=== PATIENT | female | born 2000 | race Caucasian/White ===

== ENCOUNTER → 2020-07-17 14:00 | Outpatient (CLI) | payer OTHER, SELFPAY ==
--- NOTE | ~2020-07-17 | MR_ITS ---
EXAMINATION: MR shoulder LT wo con DATE: 07/17/2020 14:38 INDICATION: Left shoulder pain TECHNIQUE: Magnetic resonance imaging (MRI) of the left shoulder was performed without intravenous co ntrast. Sequences included axial PD-weighted FS FSE, coronal oblique PD-weighted FS FSE, coronal obli que T2-weighted FS FSE, sagittal PD-weighted FS FSE, and sagittal T1-weighted SE. COMPARISON: None. FINDINGS: Coracoacromial arch: The acromion undersurface is curved in morphology (type II). The coracoacromial ligament is normal. A cromioclavicular joint is normal. Rotator cuff: The supraspinatus, infraspinatus and teres minor tendons are normal. The subscapularis tendon is norm al. Normal rotator cuff muscle bulk and signal. Biceps tendon, glenoid labrum and glenohumeral cartilage: Long head of the biceps tendon is normal. Glenoid labrum is normal. Glenohumeral cartilage is normal. Fluid: Physiologic amount of fluid in the glenohumeral joint and biceps tendon sheath. No loose osteochondra l bodies. Small amount of fluid in the subacromial/subdeltoid bursa consistent with mild bursitis. Bones: Normal marrow signal with no edema, fracture or abnormal marrow replacing process. IMPRESSION: 1. Small amount of bursal fluid consistent with mild subacromial/subdeltoid bursitis. Otherwise unrem arkable left shoulder MRI. Reviewed, dictated and finalized at location A. [employer] IMPRESSION: 1. Small amount of bursal fluid consistent with mild subacromial/subdeltoid bur sitis. Otherwise unremarkable left shoulder MRI.
== END ==
DX: M25.512 Pain in left shoulder (principal)
CPT/HCPCS: 73221

== ENCOUNTER → 2020-07-24 12:05 | Outpatient (CLI) | payer OTHER, SELFPAY ==
--- NOTE | ~2020-07-24 | XR_ITS ---
XR cervical spine min 6V DATE: 07/24/2020 12:37 INDICATION: Neck pain. Thoracic outlet syndrome. TECHNIQUE: Flexion and extension and neutral lateral views. Bilateral oblique views. Open-mouth, odon toid, AP and swimmer views COMPARISON: None FINDINGS: There is straightening of the cervical spine. C1 and C2 are normally aligned and the odonto id process is intact. No fracture or dislocation or instability on flexion or extension. No evidence of locked facet. No prevertebral soft tissue swelling. C1 and C2 are normally aligned and the odontoi d process is intact. There is no evidence of bony encroachment upon the neural foramina. Cervical int erspaces are preserved. IMPRESSION: Straightening Reviewed, dictated and finalized at location B. LE WORKER IMPRESSION: Straightening
== END ==
DX: G54.0 Brachial plexus disorders (principal); M54.2 Cervicalgia
CPT/HCPCS: 72052